=== PATIENT | female | born 1975 | race Caucasian/White ===

== ENCOUNTER → 2019-09-23 | Outpatient (CLI) | payer BC ==
--- NOTE | 2019-09-23 15:28 | REP ---
DIGITAL DIAGNOSTIC UNILATERAL LEFT BREAST MAMMOGRAPHY: Two views. Marker clip placement views. The patient status post axillary lymph node needle biopsy and marker clip placement. The target was not visible mammographically on September 03, 2019. FINDINGS: Laterally exaggerated craniocaudal and mediolateral views were obtained. These do not portrayed tissue far posterior in the axilla to show the marker clip. IMPRESSION: The marker clip is beyond the reach of the mammographic visualization.
[2019-09-23 15:36] VITALS: BP 124/80
--- NOTE | 2019-09-23 16:26 | REP ---
ULTRASOUND-GUIDED LEFT AXILLARY LYMPH NODE BIOPSY The procedure was performed under the general supervision of Dr. Hand. The patient has a history of a 1.5 x 0.5 x 1.9 cm left axillary lymph nodes seen on a previous ultrasound from [facility] performed on 09/03/2019. The risks and benefits of the procedure were explained to the patient and informed consent was obtained. The left axillary lymph node was localized using ultrasound guidance. The skin was prepped and draped in a sterile fashion. 1% lidocaine was used as a local anesthetic. Using ultrasound guidance a 14-gauge coaxial needle biopsy system was inserted and six core biopsy samples were obtained. A marker clip (HydroMARK shape 4) was placed at the biopsy site. The patient tolerated the procedure well and there were no immediate complications. Electronically Signed by BRIANNA Flores 09/23/2019 03:16 P Electronically Signed by Cristofer Hand MD 09/23/2019 04:16 P
== END ==
LOC: M WHCPRO 14:03
PROVIDERS: ATTEND Nurse Practitioner Family
DX: R59.9 Enlarged lymph nodes, unspecified (principal); Z85.820 Personal history of malignant melanoma of skin

== ENCOUNTER → 2020-06-06 | Outpatient (REF) | payer BC | LOC: M LAB REF 19:34 | PROVIDERS: ATTEND Dermatology | DX: D23.5 Other benign neoplasm of skin of trunk (principal) ==

== ENCOUNTER → 2021-05-07 | Outpatient (REF) | payer BC | LOC: M SFHCDERM 16:51 | PROVIDERS: ATTEND Physician Assistant | DX: C44.719 Basal cell carcinoma of skin of left lower limb, including hip (principal) ==

== ENCOUNTER → 2021-06-19 | Outpatient (REF) | payer BC | LOC: M SFHCWAGY 17:57 | PROVIDERS: ATTEND Physician Assistant | DX: C44.719 Basal cell carcinoma of skin of left lower limb, including hip (principal) ==

== ENCOUNTER → 2021-06-19 | Outpatient (REF) | payer BC | LOC: M SFHCDERM 18:13 | PROVIDERS: ATTEND Physician Assistant | DX: L57.0 Actinic keratosis (principal) ==

== ENCOUNTER → 2024-06-23 | Outpatient (REF) | payer BC | LOC: M SFHCDERM 17:53 | PROVIDERS: ATTEND Physician Assistant | DX: L57.0 Actinic keratosis (principal); B35.1 Tinea unguium ==